=== PATIENT | male | born 1990 | race Caucasian/White ===

== ENCOUNTER → 2020-08-02 | Outpatient (CLI) | payer SELFPAY ==
--- NOTE | 2020-08-02 21:48 | CT ---
EXAMINATION TYPE: CT sinus wo con DATE OF EXAM: 08/02/2020 COMPARISON: None HISTORY: Headaches behind his left eye for [address] DLP: 648.7 mGycm CONTRAST: 0 mL of Isovue 300 The paranasal sinuses are examined in the axial plane at 2 mm thick sections. Reconstructed images i n the coronal plane were obtained. The maxillary sinuses are clear. The ethmoid air cells are clear. The sphenoid sinuses are clear. The frontal sinuses are clear. The septum is evaluated. There is septal deviation to the right. The ostiomeatal units are patent. Tiny left air-filled uncinate process is present. IMPRESSIONS: 1. No acute sinusitis.
== END | disposition home or self-care (01) ==
LOC: RADCTMAIN 17:08
PROVIDERS: ATTEND Otolaryngology
DX: J32.9 Chronic sinusitis, unspecified (principal)
CPT/HCPCS: 70486